=== PATIENT | female | born 1945 | race Caucasian/White ===

== ENCOUNTER 2019-11-27 20:59 | Inpatient (IN) ==
[2019-11-27] MEDS ORDERED: PANTOPRAZOLE 40 MG VIAL IV STA (21:32)
[2019-11-27] MEDS ORDERED: PROMETHAZINE 25 MG/1 ML VIAL IM STA (21:32)
[2019-11-27] MEDS ORDERED: ONDANSETRON 4 MG/2 ML VIAL IV STA (21:32)
[2019-11-27] MEDS ORDERED: SODIUM CHLORIDE 0.9% 500 ML IV STA (21:32)
[2019-11-27 21:54] LABS: Basophils % 0.2 % (0.0-0.8); Hematocrit 38.9 VOL% (35.7-47.0); Hemoglobin 13.2 GM/DL (12.0-16.0); Immature Granulocytes % 0.2 %; Immature Granulocytes Absolute 0.01 #; Lymphocytes # 0.3 10*3/uL (1.4-4.0); Lymphocytes % 5.5 % (21.3-54.2); Mean Corpuscular HGB Conc 33.9 GM/DL (32-36); Mean Corpuscular Volume 92.4 FL (87-102); Mean Platelet Volume 8.5 FL (9.6-12.0); Monocytes % 9.7 % (1.7-12.7); Neutrophils % 84.4 % (38.7-73.9); Platelet Count 196 T/CUMM (130-400); Red Blood Count 4.21 MC/CUMM (3.8-5.5)
[2019-11-27 22:21] LABS: Albumin 3.4 G/DL (3.4-5.0); Bilirubin,Total 0.9 MG/DL (0.2-1.0); Calcium 8.2 MG/DL (8.5-10.1); Osmolality,Calculated 281.7 MOS/KG (273-304); Total Protein 6.4 G/DL (6.4-8.3)
[2019-11-27] MEDS ORDERED: PROMETHAZINE 25 MG/1 ML VIAL IM PRN (23:50)
[2019-11-27] MEDS ORDERED: ZALEPLON 5 MG CAPSULE PO PRN (23:50)
[2019-11-27] MEDS ORDERED: MORPHINE 4 MG/1 ML VIAL IV PRN (23:51)
[2019-11-28] MEDS: SODIUM CHLORIDE 0.9% 1,000 ML IV SCH ×3 (01:25→21:54)
[2019-11-28] MEDS: CIPROFLOXACIN INJ 400 MG in PREMIX 1 EACH IV SCH ×3 (02:25→23:28)
[2019-11-28] MEDS: metroNIDAZOLE INJ 500 MG in PREMIX 1 EACH IV SCH ×3 (03:25→18:21)
[2019-11-28 04:33] LABS: Apearance,Urine CLEAR (Clear); Bilirubin,Urine Negative (Negative); Blood, Urine Small mg/dL (Negative); Glucose,Urine (UA) Negative (Negative); Hyaline Casts,Urine 1 /LPF (0-3); Ketones,Urine Negative (Negative); Mucus,Urine Occasional /LPF (Occasional); Nitrite,Urine Negative (Negative); Protein,Urine Negative; RBC,Urine 1 /HPF (0-4); Urine Color Straw (Yellow); Urine Specific Gravity 1.006 (1.001-1.035); Urine Urobilinogen < 2.0 EU/DL (0.2-1.0)
[2019-11-28 05:12] LABS: Basophils % 0.3 % (0.0-0.8); Eosinophils % 0.3 % (0.00-10.9); Hematocrit 35.2 VOL% (35.7-47.0); Hemoglobin 11.7 GM/DL (12.0-16.0); Immature Granulocytes % 0.5 %; Immature Granulocytes Absolute 0.02 #; Lymphocytes # 0.4 10*3/uL (1.4-4.0); Lymphocytes % 9.9 % (21.3-54.2); Mean Corpuscular HGB Conc 33.2 GM/DL (32-36); Mean Corpuscular Volume 92.4 FL (87-102); Mean Platelet Volume 8.4 FL (9.6-12.0); Monocytes % 12.5 % (1.7-12.7); Neutrophils % 76.5 % (38.7-73.9); Platelet Count 162 T/CUMM (130-400); Red Blood Count 3.81 MC/CUMM (3.8-5.5); Red Cell Distribution Width 13.8 % (9.3-17.3); White Blood Count 3.9 T/CUMM (4-12)
[2019-11-28 05:43] LABS: Calcium 8.1 MG/DL (8.5-10.1); Osmolality,Calculated 283.4 MOS/KG (273-304)
[2019-11-28] MEDS ORDERED: SIMVASTATIN 20 MG TABLET PO SCH (09:00)
[2019-11-28] MEDS ORDERED: CAPECITABINE 2000 MG PO SCH (09:00)
[2019-11-28] MEDS: METOPROLOL SUCCINATE XL 100 MG TABLET PO SCH (09:09)
[2019-11-28] MEDS: PANTOPRAZOLE 40 MG TABLET PO SCH (10:55)
[2019-11-29] MEDS: metroNIDAZOLE INJ 500 MG in PREMIX 1 EACH IV SCH ×2 (00:45→08:20)
[2019-11-29 05:21] LABS: Eosinophils # 0.1 10*3/uL (0.0-0.87); Eosinophils % 1.6 % (0.00-10.9); Hematocrit 32.9 VOL% (35.7-47.0); Hemoglobin 10.9 GM/DL (12.0-16.0); Immature Granulocytes % 0.6 %; Immature Granulocytes Absolute 0.02 #; Lymphocytes # 0.3 10*3/uL (1.4-4.0); Lymphocytes % 9.9 % (21.3-54.2); Mean Corpuscular HGB Conc 33.1 GM/DL (32-36); Mean Platelet Volume 8.9 FL (9.6-12.0); Monocytes % 13.1 % (1.7-12.7); Neutrophils % 74.8 % (38.7-73.9); Platelet Count 136 T/CUMM (130-400); Red Cell Distribution Width 14.2 % (9.3-17.3); White Blood Count 3.1 T/CUMM (4-12)
[2019-11-29 05:58] LABS: Calcium 8.1 MG/DL (8.5-10.1)
[2019-11-29] MEDS: SODIUM CHLORIDE 0.9% 1,000 ML IV SCH (08:00)
[2019-11-29] MEDS: METOPROLOL SUCCINATE XL 100 MG TABLET PO SCH (08:20)
[2019-11-29] MEDS: PANTOPRAZOLE 40 MG TABLET PO SCH (08:20)
[2019-11-29] MEDS ORDERED: POTASSIUM CHLORIDE RIDER 10 MEQ in PREMIX 1 EACH IV PRN (08:21)
[2019-11-29] MEDS: POTASSIUM CHLORIDE 20 MEQ TABLET PO PRN ×4 (09:57→17:00)
[2019-11-29] MEDS: CIPROFLOXACIN INJ 400 MG in PREMIX 1 EACH IV SCH (11:33)
[2019-11-29] MEDS: ONDANSETRON 4 MG/2 ML VIAL IV PRN ×2 (11:34→21:04)
[2019-11-29] MEDS: VANCOMYCIN 50 MG/ML 60 ML/BOTTLE PO SCH ×2 (11:34→17:00)
[2019-11-30] MEDS: POTASSIUM CHLORIDE 20 MEQ TABLET PO PRN ×3 (00:26→04:18)
[2019-11-30] MEDS: VANCOMYCIN 50 MG/ML 60 ML/BOTTLE PO SCH ×4 (00:26→17:18)
[2019-11-30] MEDS: SODIUM CHLORIDE 0.9% 1,000 ML IV SCH (02:52)
[2019-11-30 05:05] LABS: Calcium 8.2 MG/DL (8.5-10.1); Osmolality,Calculated 272.7 MOS/KG (273-304)
[2019-11-30] MEDS: METOPROLOL SUCCINATE XL 100 MG TABLET PO SCH (08:50)
[2019-11-30] MEDS: PANTOPRAZOLE 40 MG TABLET PO SCH (08:50)
[2019-11-30] MEDS: DESITIN 4OZ/NYSTATIN 15 GRAM MIXTURE PASTE TOP SCH ×2 (11:37→20:51)
[2019-11-30] MEDS: ACETAMINOPHEN 325 MG TABLET PO PRN (13:13)
[2019-11-30] MEDS: ONDANSETRON 4 MG/2 ML VIAL IV PRN (16:48)
[2019-12-01] MEDS: SODIUM CHLORIDE 0.9% 1,000 ML IV SCH ×3 (00:18→20:20)
[2019-12-01] MEDS: VANCOMYCIN 50 MG/ML 60 ML/BOTTLE PO SCH ×4 (00:19→17:30)
[2019-12-01 04:59] LABS: Basophils % 0.3 % (0.0-0.8); Eosinophils # 0.1 10*3/uL (0.0-0.87); Eosinophils % 3.1 % (0.00-10.9); Hematocrit 37.4 VOL% (35.7-47.0); Hemoglobin 12.3 GM/DL (12.0-16.0); Immature Granulocytes % 0.5 %; Immature Granulocytes Absolute 0.02 #; Lymphocytes # 0.5 10*3/uL (1.4-4.0); Lymphocytes % 12.5 % (21.3-54.2); Mean Corpuscular HGB Conc 32.9 GM/DL (32-36); Mean Corpuscular Volume 93.7 FL (87-102); Mean Platelet Volume 8.7 FL (9.6-12.0); Monocytes % 15.1 % (1.7-12.7); Neutrophils % 68.5 % (38.7-73.9); Platelet Count 178 T/CUMM (130-400); Red Blood Count 3.99 MC/CUMM (3.8-5.5); Red Cell Distribution Width 14.5 % (9.3-17.3); White Blood Count 3.9 T/CUMM (4-12)
[2019-12-01 05:44] LABS: Calcium 8.4 MG/DL (8.5-10.1); Osmolality,Calculated 272.7 MOS/KG (273-304)
[2019-12-01] MEDS: PANTOPRAZOLE 40 MG TABLET PO SCH (08:46)
[2019-12-01] MEDS: METOPROLOL SUCCINATE XL 100 MG TABLET PO SCH (08:46)
[2019-12-01] MEDS: DESITIN 4OZ/NYSTATIN 15 GRAM MIXTURE PASTE TOP SCH ×2 (08:50→20:21)
[2019-12-01] MEDS: ONDANSETRON 4 MG/2 ML VIAL IV PRN (16:06)
[2019-12-02] MEDS: VANCOMYCIN 50 MG/ML 60 ML/BOTTLE PO SCH ×4 (00:04→18:06)
[2019-12-02] MEDS: ACETAMINOPHEN 325 MG TABLET PO PRN ×3 (03:45→18:06)
[2019-12-02 05:12] LABS: Calcium 7.8 MG/DL (8.5-10.1); Osmolality,Calculated 279.4 MOS/KG (273-304)
[2019-12-02] MEDS: DESITIN 4OZ/NYSTATIN 15 GRAM MIXTURE PASTE TOP SCH ×2 (09:06→20:59)
[2019-12-02] MEDS: PANTOPRAZOLE 40 MG TABLET PO SCH (09:06)
[2019-12-02] MEDS: METOPROLOL SUCCINATE XL 100 MG TABLET PO SCH (09:06)
[2019-12-02] MEDS: ONDANSETRON 4 MG/2 ML VIAL IV PRN (09:13)
[2019-12-02] MEDS ORDERED: MAGNESIUM SULF RIDER 4 GM in PREMIX 1 EACH IV PRN (09:25)
[2019-12-02] MEDS ORDERED: MAGNESIUM SULF RIDER 2 GM in PREMIX 1 EACH IV PRN (09:25)
[2019-12-02] MEDS: SODIUM CHLORIDE 0.9% 1,000 ML IV SCH (11:43)
[2019-12-03] MEDS: VANCOMYCIN 50 MG/ML 60 ML/BOTTLE PO SCH ×4 (00:30→17:11)
[2019-12-03 06:07] LABS: Calcium 7.8 MG/DL (8.5-10.1); Osmolality,Calculated 275.5 MOS/KG (273-304)
[2019-12-03] MEDS: METOPROLOL SUCCINATE XL 100 MG TABLET PO SCH (08:24)
[2019-12-03] MEDS: PANTOPRAZOLE 40 MG TABLET PO SCH (08:24)
[2019-12-03] MEDS: DESITIN 4OZ/NYSTATIN 15 GRAM MIXTURE PASTE TOP SCH ×2 (08:24→21:15)
[2019-12-03] MEDS: ACETAMINOPHEN 325 MG TABLET PO PRN ×2 (09:59→14:48)
[2019-12-03] MEDS: POTASSIUM CHLORIDE 20 MEQ TABLET PO PRN ×3 (12:21→17:11)
[2019-12-03] MEDS: SODIUM CHLORIDE 0.9% 1,000 ML IV SCH (12:57)
[2019-12-04] MEDS: VANCOMYCIN 50 MG/ML 60 ML/BOTTLE PO SCH ×4 (00:15→18:28)
[2019-12-04 06:16] LABS: Calcium 8.1 MG/DL (8.5-10.1); Osmolality,Calculated 269.8 MOS/KG (273-304)
[2019-12-04] MEDS: SODIUM CHLORIDE 0.9% 1,000 ML IV SCH (09:16)
[2019-12-04] MEDS: PANTOPRAZOLE 40 MG TABLET PO SCH (09:17)
[2019-12-04] MEDS: METOPROLOL SUCCINATE XL 100 MG TABLET PO SCH (09:17)
[2019-12-04] MEDS: DESITIN 4OZ/NYSTATIN 15 GRAM MIXTURE PASTE TOP SCH ×2 (12:47→20:39)
[2019-12-05] MEDS: VANCOMYCIN 50 MG/ML 60 ML/BOTTLE PO SCH ×5 (00:01→23:53)
[2019-12-05] MEDS: ACETAMINOPHEN 325 MG TABLET PO PRN (00:02)
[2019-12-05] MEDS: SODIUM CHLORIDE 0.9% 1,000 ML IV SCH (05:22)
[2019-12-05] MEDS: PANTOPRAZOLE 40 MG TABLET PO SCH (09:25)
[2019-12-05] MEDS: METOPROLOL SUCCINATE XL 100 MG TABLET PO SCH (09:25)
[2019-12-05] MEDS: DESITIN 4OZ/NYSTATIN 15 GRAM MIXTURE PASTE TOP SCH ×2 (09:26→20:37)
[2019-12-06] MEDS: SODIUM CHLORIDE 0.9% 1,000 ML IV SCH (01:22)
[2019-12-06] MEDS: VANCOMYCIN 50 MG/ML 60 ML/BOTTLE PO SCH ×3 (05:52→17:40)
[2019-12-06] MEDS: PANTOPRAZOLE 40 MG TABLET PO SCH (08:50)
[2019-12-06] MEDS: METOPROLOL SUCCINATE XL 100 MG TABLET PO SCH (08:51)
[2019-12-06] MEDS: DESITIN 4OZ/NYSTATIN 15 GRAM MIXTURE PASTE TOP SCH ×2 (11:52→20:28)
[2019-12-06] MEDS: ACETAMINOPHEN 325 MG TABLET PO PRN (20:26)
[2019-12-07] MEDS: SODIUM CHLORIDE 0.9% 1,000 ML IV SCH ×2 (00:25→17:26)
[2019-12-07] MEDS: VANCOMYCIN 50 MG/ML 60 ML/BOTTLE PO SCH ×3 (00:48→11:24)
[2019-12-07 04:25] LABS: Basophils % 0.3 % (0.0-0.8); Eosinophils % 1.3 % (0.00-10.9); Hematocrit 32.1 VOL% (35.7-47.0); Hemoglobin 10.6 GM/DL (12.0-16.0); Immature Granulocytes Absolute 0.03 #; Lymphocytes # 0.2 10*3/uL (1.4-4.0); Lymphocytes % 7.4 % (21.3-54.2); Mean Platelet Volume 8.6 FL (9.6-12.0); Monocytes % 19.8 % (1.7-12.7); Neutrophils % 70.2 % (38.7-73.9); Platelet Count 169 T/CUMM (130-400); Red Blood Count 3.38 MC/CUMM (3.8-5.5); Red Cell Distribution Width 16.7 % (9.3-17.3)
[2019-12-07 04:41] LABS: Calcium 8.1 MG/DL (8.5-10.1); Osmolality,Calculated 277.3 MOS/KG (273-304)
[2019-12-07 04:57] LABS: Band Neutrophils 4 % (0-10); Eosinophils 1 % (0-10); Hypochromasia 1+; Lymphocytes 10 % (20-55); Segmented Neutrophils 70 % (50-85); Total Cells Counted 100
[2019-12-07 04:58] LABS: Ovalocytes Slight
[2019-12-07 04:59] LABS: Macrocytosis 1+; Platelet Estimate Adequate
[2019-12-07] MEDS: PANTOPRAZOLE 40 MG TABLET PO SCH (08:13)
[2019-12-07] MEDS: DESITIN 4OZ/NYSTATIN 15 GRAM MIXTURE PASTE TOP SCH (08:13)
[2019-12-07] MEDS: METOPROLOL SUCCINATE XL 100 MG TABLET PO SCH (08:13)
[2019-12-07] MEDS: POTASSIUM CHLORIDE 20 MEQ TABLET PO PRN (08:13)
[2019-12-07] MEDS ORDERED: POTASSIUM CHLORIDE INJ 50 MEQ in SODIUM CHLORIDE 0.9% 500 ML IV ONE (10:30)
[2019-12-07 12:11] VITALS: BP 154/64
[2019-12-07] MEDS ORDERED: HEPARIN LOCK FLUSH 500 UNIT/5 ML SYRINGE IV ONE (15:46)
== END 2019-12-07 17:25 | disposition home or self-care (01) | DRG 372 ==
LOC: N.EDINP 20:59 → N.ED 20:59 → N.2W 23:24 → SUATTDRO 11-29 14:32 → N.2E 12-01 14:01
PROVIDERS: ADMIT Internal Medicine; ATTEND Internal Medicine Geriatric Medicine